=== PATIENT | female | born 1975 | race Caucasian/White ===

== ENCOUNTER 2017-10-01 11:23 | Observation (INO) ==
[2017-10-01] MEDS ORDERED: SALINE FLUSH 10ml SYRINGE IV PRN (11:28)
--- OUTSIDE RECORDS SUMMARY | 2017-10-01 11:30 | External Medical Summary | Clinical Summary ---
:1975 Author Organization [facility] Address [address] [address] Phone Support Name Relationship Address Phone Unavailable Unavailable Unavailable Allergies No Known Allergies Current Medications Prescription Sig. Disp. Refills Start Date End Date Status albuterol (VENTOLIN Inhale 2 puffs 1 Inhaler 2 03/15/2014 Active HFA, PROAIR HFA) 108 into the lungs (90 BASE) MCG/ACT every 6 (six) inhalerIndications: hours as needed Pneumonia for Wheezing. amoxicillin-clavulanate Take 1 tablet by 20 tablet 0 09/22/2016 Active (AUGMENTIN) 875-125 MG mouth 2 (two) times daily. multivitamin Take 1 tablet by Active ( PLUS) 27-1 MG mouth daily. TABS Active Problems Problem Noted Date Hepatitis C antibody test positive 03/05/2014 Mechanical heart valve present 03/05/2014 LRTI (lower respiratory tract infection) 03/04/2014 Atrial fibrillation with RVR (HCC) 02/28/2014 Atrial fibrillation with rapid ventricular response (HCC) 02/28/2014 MDD (major depressive disorder) 11/06/2013 Recurrent pleural effusion on right 09/07/2012 Subtherapeutic international normalized ratio (INR) 09/07/2012 S/P MVR (mitral valve replacement) 09/01/2012 S/P MVR (mitral valve repair) 09/01/2012 Pleural effusion 09/01/2012 Anemia 09/01/2012 Chronic anticoagulation 09/01/2012 PAF (paroxysmal atrial fibrillation) (HCC) 09/01/2012 Mitral valve disorders(424.0) Resolved Problems Problem Noted Date Resolved Date Fever 09/01/2012 09/07/2012 Hypotension (arterial) 09/01/2012 09/07/2012 Pneumonia 09/01/2012 09/07/2012 Immunizations Name Dates Previously Given Next Due DTP ([facility] registry) 05/20/1979, 06/24/1978, 1975, 1975 Hep A/Hep B (Twinrix) 05/14/2014, 04/07/2014 Influenza IIV3 PFree 07/02/2012 MMR 11/27/1978 OPV ([employer] registry) 05/08/1985, 05/20/1979, 1977, 1977 Pneumococcal Polysaccharide (23-valent) 07/24/2012 Td(adult), adsorbed 05/08/1985 Family History Medical History Relation Name Comments Cancer Brother osteosarcoma Other Brother Down syndrome Other Father Father - Cause of :aids Physical abuse Maternal Uncle Sexual abuse Maternal Uncle Alcohol abuse Mother Anxiety disorder Mother Bipolar disorder Mother Depression Mother Drug abuse Mother Other Mother Mother - alcoholism Physical abuse Mother Sexual abuse Mother Alcohol abuse Paternal Grandmother ADHD Son Anxiety disorder Son Depression Son Physical abuse Son Sexual abuse Son Relation Name Status Comments Brother Alive Father Alive AIDS Maternal Uncle Mother Alive Alcoholism Paternal Grandmother Son Social History Tobacco Use Types Packs/Day Years Used Date Current Every Day Smoker 0.5 24 Smokeless Tobacco: Never Used Tobacco Cessation: Ready to Quit: No; Counseling Given: No Comments: Cigarettes 1/2 pack daily Alcohol Use Drinks/Week oz/Week Comments No Alcoholic Drinks/day: Never Sex Assigned at Date Recorded Not on file Last Filed Vital Signs Vital Sign Reading Time Taken Blood Pressure 120/82 10/05/2016 1:27 PM [employer]OL [facility] Pulse 87 09/22/2016 1:47 AM TOOL GR[employer]ER Temperature 38.4 C (101.1 F) 09/21/2016 9:07 PM [employer]OL [employer]ER Respiratory Rate 18 09/22/2016 1:47 AM TOOL GRINDER Oxygen Saturation 96% 09/22/2016 1:47 AM TOOL GR[employer]ER Inhaled Oxygen Concentration - - Weight 55.8 kg (123 lb) 10/05/2016 1:27 PM TOOL GR[employer]ER Height 167.6 cm (5' 6") 09/21/2016 9:07 PM TOOL GR[employer]ER Body Mass Index 19.85 10/05/2016 1:27 PM TOOL GRINDER Plan of Treatment Health Maintenance Due Date Last Done Comments Varicella Vaccines (1 of 2 - 2 1990 Dose Adolescent Series) DTaP,Tdap,and Td Vaccines (5 - 1996 05/08/1985, 05/20/1979, Tdap) 06/24/1978, Additional history exists CERVICAL CANCER SCREENING 1998 Influenza Vaccine (#1) 2017 07/02/2012 Results Not on filefrom Last 3 Months
--- OUTSIDE RECORDS SUMMARY | 2017-10-01 11:31 | External Medical Summary ---
:1975 Author Organization [employer] Care Team Providers Name Role Phone Carmine Mikhail Provider Role Unavailable Allergies, Adverse Reactions, Alerts Substance Reaction Event Type N.K.D.A. Info Not Available Non Drug Allergy Problems Problem Type Condition Code Onset Dates Condition Status Assessment Presence of prosthetic heart valve Z95.2 Active Assessment Supervision of with O09.292 Active other poor reproductive or obstetric history, second trimester Assessment with inconclusive O36.80X0 Active viability, not applicable or unspecified Assessment Encounter for screening for Z11.3 Active infections with a predominantly sexual mode of transmission Assessment Encounter for gynecological Z01.419 Active examination (general) (routine) without abnormal findings Problem Supervision of with O09.292 Active other poor reproductive or obstetric history, second trimester Problem Supervision of elderly O09.522 Active multigravida, second trimester Problem Supervision of with O09.32 Active insufficient care, second trimester Assessment Supervision of with O09.32 Active insufficient care, second trimester Assessment Supervision of elderly O09.522 Active multigravida, second trimester Problem with inconclusive O36.80X0 Active viability, not applicable or unspecified Problem Presence of prosthetic heart valve Z95.2 Active Medications Medication Code System Code Instructions Start Date End Date Status Dosage [facility] [id number] not defined 1 Procedures Procedure Coding System Code Date CHYLMD TRACH, DNA, DIR PROBE CPT-4 24218 Aug 16, 2016 CYTOPATH C/V AUTO FLUID REDO (tc CYIM1) CPT-4 69925 Aug 16, 2016 N.GONORRHOEAE, DNA, DIR PROB CPT-4 50919 Aug 16, 2016 OBSTETRIC PANEL CPT-4 99280 Aug 16, 2016 RUBELLA ANTIBODY CPT-4 02858 Aug 16, 2016 HIV-1 AG W/HIV-1 & HIV-2 AB CPT-4 63793 Aug 16, 2016 HEPATITIS B SURFACE AG, EIA CPT-4 86531 Aug 16, 2016 Office Visit, New Pt., Level 4 CPT-4 04657 Aug 16, 2016 URINE CULTURE/COLONY COUNT CPT-4 35214 Aug 16, 2016 RBC ANTIBODY SCREEN CPT-4 93608 Aug 16, 2016 URINE BACTERIA CULTURE CPT-4 88414 Aug 16, 2016 COMPLETE CBC W/AUTO DIFF WBC CPT-4 49816 Aug 16, 2016 BLOOD SEROLOGY, QUALITATIVE CPT-4 20817 Aug 16, 2016 Vital Signs Date/Time: Aug 16, 2016 Temperature 97.1 F Cardiac Monitoring Heart Rate 83 /min Weight 127.6 lbs Results Name Result Date Reference Range Unit Abnormality Flag CULTURE, URINE, ROUTINE ----CULTURE, URINE, ROUTINE SEE NOTE [id number] A THINPREP TIS PAP REFLEX HPV mRNA E6/E7 ----SOURCE: Cervix [id number] N Summary Purpose eClinicalWorks Submission
[2017-10-01] MEDS ORDERED: HEPARIN - PHARMACY CONSULT MC ONE (11:33)
[2017-10-01 11:48] VITALS: BMI 20.1
[2017-10-01] MEDS ORDERED: HEPARIN 1,000unit/ml INJECTION 10ml IVP ONE ×3 (13:15→22:55)
[2017-10-01] MEDS: HEPARIN DRIP 20,000 UNIT/500 ML BAG IV SCH (13:38)
--- NOTE | 2017-10-01 13:44 | Pharmacy Consult ---
Pharmacy Consult-Heparin - Laboratory Information Heparin Plt Count 238 T/MM3 (130-400) 10/01/17 12:05 APTT 23.2 SEC (24-36) L 10/01/17 12:56 - Consult Information HEPARIN CONSULT (Initial): 42 yr old female 5'5" 55.8 kg Dx: Anticoagulation (pt has mechanical heart valve and has been off anticoagulant meds) Baseline PTT = 23.2 Sec. Baseline platelet count = 238 T/mm3. PTT Target Range = 50-75 CARDIAC HEPARIN PROTOCOL Will give Heparin Bolus of 3360 units, start Heparin Drip at 672 units/hr (16.8 ml/hr). Heparin 20,000 units in D5W 500ml. (40 units/ml) We will continue to monitor and make adjustments accordingly. Thank you. Rosa Conti, CatalinaD
[2017-10-01] MEDS: PROMETHAZINE VC PO SCH ×2 (15:44→21:28)
[2017-10-01] MEDS: CODEINE PO SCH ×2 (15:44→21:28)
[2017-10-01] MEDS ORDERED: HYDROCODONE/APAP 5mg/325mg TABLET PO PRN (19:14)
[2017-10-01] MEDS ORDERED: ACETAMINOPHEN 650 MG/20.3 ML SOLUTION PO PRN (19:15)
[2017-10-01] MEDS ORDERED: ZOLPIDEM 5 MG TABLET PO PRN (19:16)
[2017-10-01] MEDS: ClonazePAM 0.5 MG TABLET PO SCH ×2 (19:21→20:02)
[2017-10-01] MEDS ORDERED: NICOTINE 21 MG PATCH TD ONE (20:01)
[2017-10-02 00:17] VITALS: RESP 20
[2017-10-02 08:15] VITALS: BP 92/60; TEMP 97.9; O2SAT 97
--- NOTE | 2017-10-02 08:48 | Pharmacy Consult ---
Pharmacy Consult-Heparin - Laboratory Information Heparin Plt Count 206 T/MM3 (130-400) 10/02/17 08:01 APTT 67.8 SEC (24-36) H 10/02/17 04:39 - Consult Information HEPARIN CONSULT (Recurring): PTT = 67.8 Sec. Platelet count = 206,000 Will continue Heparin Drip at 960 units/hr (24 ml/hr). Will recheck PTT and adjust regimen as needed. Thank you.
[2017-10-02] MEDS: ClonazePAM 0.5 MG TABLET PO SCH (08:56)
[2017-10-02] MEDS: PROMETHAZINE VC PO SCH (08:56)
[2017-10-02] MEDS: CODEINE PO SCH (08:56)
[2017-10-02] MEDS ORDERED: NICOTINE PATCH REMOVAL TD SCH (09:00)
[2017-10-02 10:30] VITALS: PULSE 135
[2017-10-02] MEDS: HEPARIN DRIP 20,000 UNIT/500 ML BAG IV SCH (10:45)
[2017-10-02] MEDS ORDERED: HEPARIN DRIP 20,000 UNIT/500 ML BAG IV SCH (12:15)
--- NOTE | 2017-10-02 13:10 | Pharmacy Consult ---
Pharmacy Consult-Heparin - Laboratory Information Heparin Plt Count 206 T/MM3 (130-400) 10/02/17 08:01 APTT 52.3 SEC (24-36) H 10/02/17 11:19 - Consult Information HEPARIN CONSULT (Recurring): PTT = 52.3 Sec. Will adjust Heparin Drip to 1,000 units/hr (25 ml/hr). Will recheck PTT and adjust regimen as needed. Thank you.
--- NOTE | 2017-10-02 14:05 | Discharge Summary ---
<Caity Austin - Last Filed: 10/02/17 14:49> Discharge Information Date of admission: 10/01/17 11:24 Anticipated date of discharge: 10/02/17 Attending Physician: Brian Sevilla MD Primary care physician: Myron Madrigal DO Consults: 10/01/17 11:32 Case Management Consult [CONS] Routine Reason For Exam: needs home lovenox Mechanical Valve - Laboratory Labs: 10/02/17 08:01 10/02/17 08:01 History of Present Illness HPI: Erik is a 42 year old female who is known to Dr. Sevilla with a history of atrial fibrillation and mechanical valve replacement who has not been compliant with Coumadin for the last year. She was admitted for observation and anticoagulation therapy on Heparin drip. Initially she planned to take Lovenox SQ, however after finding out the cost she has decided to start Coumadin instead. 10/02/17 14:02 Hospital Course This is a general summary of the patient's hospital course. For more details refer to the complete medical record. Hospital course: Erik agreed to take Coumadin for her mechanical valve. Explained to her that without chronic anticoagulation she will have a stroke due to embolization. She states understanding and is willing to fill Coumadin and have her INR drawn and managed by [facility]. Time spent with patient: 25 - 35 minutes Exam Vital signs: Temperature 97.9 F 10/02/17 08:00 Pulse Rate 135 H 10/02/17 08:00 Respiratory Rate 20 10/02/17 08:00 Blood Pressure 92/60 10/02/17 08:00 Pulse Oximetry 97 10/02/17 08:00 - Constitutional mild distress, thin, cooperative - Routine HEENT Exam Head: Present: normocephalic ENT: Present: mucous membranes moist - Routine Neck Exam Absent: JVD, carotid bruit - Routine Chest/Breast/Axilla Exam Chest wall: Absent: tenderness - Routine Respiratory Exam Present: CTA bilaterally. Absent: dyspnea, rales, wheezes, crackles - Routine Cardiovascular Exam Present: no murmur, click, tachycardia - Routine Abdominal Exam Present: soft, normoactive bowel sounds - Routine Extremities Exam Present: no edema - Routine Skin Exam Present: intact, dry, warm - Routine Neurological Exam Present: alert, oriented X3 - Routine Psychiatric Exam Present: normal affect, anxious Results 10/02/17 08:01 10/02/17 08:01 Coagulation 10/01/17 10/02/17 10/02/17 Range/Units 21:19 04:39 11:19 APTT 31.9 67.8 H 52.3 H (24-36) SEC CBC 10/02/17 Range/Units 08:01 WBC 6.7 (4.5-11.0) T/MM3 RBC 3.77 L (4.00-5.20) M/MM3 Hgb 11.1 L (12-16) GM/DL Hct 35.3 L (36-46) % Plt Count 206 (130-400) T/MM3 Comprehensive Metabolic Panel 10/02/17 Range/Units 08:01 Sodium 139 (134-144) MEQ/L Potassium 3.9 (3.6-5) MEQ/L Chloride 104 (98-107) MEQ/L Carbon Dioxide 28 (22-30) MEQ/L BUN 15.0 (7-17) MG/DL Creatinine 0.5 L (0.7-1.2) MG/DL Glucose 92 (65-110) MG/DL Calcium 8.6 (8.4-10.2) MG/DL Intake and Output 10/01/17 10/02/17 10/02/17 22:59 06:59 14:59 Intake Total 144.76 / 144.76 1098.8 / 1098.8 179.6 / 179.6 Output Total 250 / 250 275 / 275 Balance -105.24 / -105.24 823.8 / 823.8 179.6 / 179.6 Intake: IV 144.76 / 144.76 168.8 / 168.8 179.6 / 179.6 Heparin Drip 20,000 unit In 500 144.76 / 144.76 168.8 / 168.8 179.6 / 179.6 ml @ 24 mls/hr IV .[id number] [facility] Rx#:[id number] Oral 930 / 930 Output: Urine 250 / 250 275 / 275 Other: Urine Appearance Clear Clear Urine Color Dark Yellow Dark Yellow Urine Odor Normal Normal Weight 124 lb 8.979 oz Patient Weight 10/03/17 06:59 Weight 124 lb 8.979 oz Discharge Plan - Med Rec/Dispo Referrals/Follow Up: Brian Sevilla MD [Physician] - 10/17/17 10:20 am Prescriptions: New Warfarin [Coumadin] 5 mg PO DAILY #30 tab Continue Aspirin/Acetaminophen/Caffeine [Excedrin Migraine Caplet] 2 tab PO Q6H PRN PRN Reason: Pain DiltiaZEM CD [Cardizem CD 120 MG] 120 mg PO DAILY #30 cap Promethazine Vc + Codeine Liq. [Phenergan Vc + Codeine Syrup] 5 ml PO TID # 60 ml ClonazePAM [Klonopin] 1 tab PO TID #21 tab - Disposition 01 Discharged Home, Self-Care - Dismissal Complete Discharge Instructions are:: Complete <Brian Sevilla - Last Filed: 10/09/17 11:16> Discharge Information Date of admission: 10/01/17 11:24 Attending Physician: Brian Sevilla MD Primary care physician: Myron Madrigal DO Consults: 10/01/17 11:32 Case Management Consult [CONS] Routine Reason For Exam: needs home lovenox - Laboratory Labs: 10/02/17 08:01 10/02/17 08:01 Hospital Course This is a general summary of the patient's hospital course. For more details refer to the complete medical record. Exam Vital signs: Temperature 97.9 F 10/02/17 08:00 Pulse Rate 135 H 10/02/17 08:00 Respiratory Rate 20 10/02/17 08:00 Blood Pressure 92/60 10/02/17 08:00 Pulse Oximetry 97 10/02/17 08:00 Results 10/02/17 08:01 10/02/17 08:01 Attestation Narriative - Attestation Attestation Narrative: 10/09/17 11:16 Recommendation After examining the patient I agree with the above assessment. I am involved in the formulation of the patient's plan of care.
[2017-10-02] MEDS ORDERED: WARFARIN 5 MG TABLET PO ONE (14:41)
[2017-10-03] MEDS ORDERED: WARFARIN 5 MG TABLET PO SCH ×2 (12:00→14:26)
== END 2017-10-02 15:00 | disposition home or self-care (01) ==
LOC: SRG
PROVIDERS: ADMIT Internal Medicine Cardiovascular Disease; ATTEND Internal Medicine Cardiovascular Disease